=== PATIENT | female | born 1945 | race Caucasian/White ===

== ENCOUNTER 2022-05-15 11:14 | Inpatient (IN) | payer MEDICAID ==
[~2022-05-15] VITALS: Ht 167.6 cm; Wt 90.7 kg
--- NOTE | 2022-05-15 11:15 | NUR ---
BIB daughter with c/o "on and off" chest pain since last night, pt ambulatory to room 1A. Pt is Cymra[place] speaking, pt's daughter translating. at bedside for MSE.
[2022-05-15] MEDS ORDERED: OMEP20TA5 PO (11:37)
[2022-05-15] MEDS ORDERED: LORA-258 PO (11:37)
[2022-05-15] MEDS ORDERED: MELO-107 PO (11:37)
[2022-05-15] MEDS ORDERED: HYDR25TA4 PO (11:37)
[2022-05-15] MEDS ORDERED: OXYB5TAB16 PO (11:37)
[2022-05-15] MEDS ORDERED: ATEN25TA PO (11:37)
[2022-05-15] MEDS ORDERED: LEVO25TA9 PO (11:37)
[2022-05-15] MEDS ORDERED: GABA-532 PO (11:37)
[2022-05-15] MEDS ORDERED: APIX2.5T PO (11:37)
[2022-05-15 12:03] LABS: CARBON DIOXIDE 28 mmol/L (21-32); CHLORIDE 106 mmol/L (98-107); GLUCOSE 116 mg/dL (74-106); POTASSIUM 3.8 mmol/L (3.5-5.1); UREA NITROGEN, BLOOD 11 mg/dL (7-18)
[2022-05-15 12:04] LABS: HEMATOCRIT 37.5 % (31.2-41.9); MEAN CORPUSCULAR HEMOGLOBIN 31.1 uug (24.7-32.8); MEAN CORPUSCULAR VOLUME 89.1 fL (75.5-95.3); PLATELET COUNT (AUTO) 183 K/uL (179-408)
--- NOTE | 2022-05-15 16:05 | NUR ---
Per ER admitting they have received authorization and pt may be admitted here, room 303 assigned on tele floor. Plan of care discussed with pt and daughter.
--- NOTE | 2022-05-15 16:23 | NUR ---
REPORT WAS GIVEN TO [employer]ER. PT WAS TRANSFERED TO TELEMETRY ROOM #303.
[2022-05-15 17:34] VITALS: BP 136/70
--- NOTE | 2022-05-15 17:35 | NUR ---
76 year old female received from er via gurney to room 303.for chest pain .pt is [id number] ,call light with in reach vs are stable md notified for admission family at bed side
[2022-05-15 20:00] VITALS: BP 120/66
[2022-05-15] MEDS ORDERED: ONDANSETRON 4 MG/2 ML VIAL IV PRN (22:15)
[2022-05-15] MEDS ORDERED: TEMAZEPAM 15 MG CAPSULE PO PRN (22:15)
[2022-05-15] MEDS ORDERED: HYDROCODONE/APAP 5-325MG TABLET PO PRN (22:15)
[2022-05-15] MEDS ORDERED: ACETAMINOPHEN 325 MG TABLET PO PRN (22:15)
[2022-05-15] MEDS ORDERED: LORAZEPAM 0.5 MG TABLET PO PRN (22:15)
[2022-05-16] VITALS: BP 103/45
[2022-05-16 04:00] VITALS: BP 106/45
[2022-05-16] MEDS ORDERED: OXYB10TA4 PO (05:25)
[2022-05-16] MEDS ORDERED: PANTOPRAZOLE SODIUM 40 MG TABLET.DR PO SCH (07:00)
[2022-05-16] MEDS ORDERED: LEVOTHYROXINE SODIUM 25 MCG TABLET PO SCH (07:00)
[2022-05-16 07:32] LABS: HEMATOCRIT 37.7 % (31.2-41.9); MEAN CORPUSCULAR HEMOGLOBIN 30.9 uug (24.7-32.8); MEAN CORPUSCULAR VOLUME 88.4 fL (75.5-95.3); PLATELET COUNT (AUTO) 180 K/uL (179-408)
[2022-05-16 08:04] LABS: THYROID STIMULATING HORMONE 3.539 mIU/mL (0.358-3.740)
[2022-05-16 08:15] LABS: BILIRUBIN,TOTAL 0.8 mg/dL (0.2-1.0); CREATININE 0.9 mg/dL (0.6-1.3); MAGNESIUM 2.3 mg/dL (1.8-2.4); PHOSPHOROUS 4.3 mg/dL (2.5-4.9); POTASSIUM 3.6 mmol/L (3.5-5.1); TOTAL PROTEIN, SERUM 6.4 g/dL (6.4-8.2)
[2022-05-16] MEDS ORDERED: OXYBUTYNIN XL 5 MG TABSR PO SCH (09:00)
[2022-05-16] MEDS ORDERED: HYDROCHLOROTHIAZIDE 25 MG TABLET PO SCH (09:00)
[2022-05-16] MEDS ORDERED: GABAPENTIN 100 MG CAPSULE PO SCH (09:00)
[2022-05-16] MEDS ORDERED: OXYBUTYNIN CHLORIDE 5 MG TABLET PO SCH (09:00)
[2022-05-16] MEDS ORDERED: APIXABAN 2.5 MG TABLET PO SCH (09:00)
[2022-05-16] MEDS ORDERED: MELOXICAM 7.5 MG TABLET PO SCH (09:00)
[2022-05-16] MEDS ORDERED: ATENOLOL 25 MG TABLET PO SCH (09:00)
[2022-05-16 11:30] VITALS: BP 127/70
[2022-05-16] MEDS ORDERED: ALOG1TAB10 PO (12:46)
[2022-05-16] MEDS ORDERED: LISI10TA29 PO (12:46)
[2022-05-16] MEDS ORDERED: TRAZ-257 PO (12:46)
[2022-05-16] MEDS ORDERED: ATOR10TA PO (14:32)
[2022-05-16] MEDS ORDERED: DOCUSATE SODIUM 250 MG CAPSULE PO SCH (21:00)
[2022-05-16] MEDS ORDERED: DOCUSATE SODIUM 100 MG CAPSULE PO SCH (21:00)
[2022-05-16] MEDS ORDERED: ATORVASTATIN 10 MG TABLET PO SCH (21:00)
== END 2022-05-16 15:25 | disposition home or self-care (01) | DRG 203 ==
LOC: ER 11:14 → TELE3 12:00
PROVIDERS: ADMIT Internal Medicine; ATTEND Internal Medicine
DX: M94.0 Chondrocostal junction syndrome [Tietze] (principal); I11.9 Hypertensive heart disease without heart failure; E11.42 Type 2 diabetes mellitus with diabetic polyneuropathy; E03.9 Hypothyroidism, unspecified; I25.10 Atherosclerotic heart disease of native coronary artery without angina pectoris; Z68.32 Body mass index [BMI] 32.0-32.9, adult; E66.9 Obesity, unspecified; F41.9 Anxiety disorder, unspecified; M19.90 Unspecified osteoarthritis, unspecified site; Z79.01 Long term (current) use of anticoagulants; Z86.718 Personal history of other venous thrombosis and embolism; Z86.72 Personal history of thrombophlebitis; Z87.891 Personal history of nicotine dependence; K42.9 Umbilical hernia without obstruction or gangrene; K40.20 Bilateral inguinal hernia, without obstruction or gangrene, not specified as recurrent; K57.30 Diverticulosis of large intestine without perforation or abscess without bleeding; R41.3 Other amnesia; Z20.822 Contact with and (suspected) exposure to COVID-19; M54.10 Radiculopathy, site unspecified; N32.81 Overactive bladder
CPT/HCPCS: 36415; 71045; 83735; 84100; 84443; 84484; 85025; 93005; 93307; A4663; G0378